=== PATIENT | male | born 1980 | race Hispanic/Latino ===

== ENCOUNTER 2022-11-18 22:46 | Inpatient (IN) | payer OTHER ==
[~2022-11-18 22:46] MED LIST: Iopamidol-370 76% 500 ML 1 ML ONE
[2022-11-18] MEDS ORDERED: Fentanyl 100 MCG/2 ML VIAL ONE (23:16)
[2022-11-18 23:19] LABS: #Basophils 0.1 thou/uL (0.0-0.2); #Eosinphils 0.2 thou/uL (0.0-0.7); #Lymphocytes 3.9 thou/uL (1.20-3.40); #Monocytes 0.5 thou/uL (0.11-0.59); %Basophils 0.4 % (0.0-1.0); %Eosinophils 1.8 % (0.0-10.0); %Lymphocytes 33.4 % (21.0-51.0); %Monocytes 4.6 % (0.0-10.0); %Neutrophils 59.7 % (42.0-75.0); Hemoglobin 13.8 g/dL (14.0-18.0); Mean Corpuscular HGB CONC 33.8 g/dL (32.0-36.0); Mean Corpuscular Hemoglobin 30.5 pg (27.0-31.0); Mean Corpuscular Volume 90.1 fl (78.0-98.0); Mean Platelet Volume 8.5 fL (7.4-10.4); Platelet Count 207 10x3/uL (130-400); RBC Distribution Width 12.2 % (11.5-14.5); Red Blood Cell (RBC) Count 4.53 mill/uL (4.70-6.10); White Blood Cell (WBC) Count 11.6 10x3/uL (4.8-10.8)
[2022-11-18 23:39] LABS: ALT (SGPT) 17 U/L (8-55); AST (SGOT) 20 U/L (5-34); Albumin 4.4 g/dL (3.5-5.0); Alkaline Phosphatase 70 U/L (40-110); Anion Gap 13 mmol/L (10-20); BUN (Urea Nitrogen) 18 mg/dL (8.9-20.6); Bilirubin, Total 0.4 mg/dL (0.2-1.2); Calc. Creatinine Clearance 0 mL/min (70-130); Calcium 9.3 mg/dL (7.8-10.44); Carbon Dioxide 20 mmol/L (22-29); Chloride 111 mmol/L (98-107); Estimated GFR 73; Globulin 2.8 g/dL (2.4-3.5); Glucose 145 mg/dL (70-105); Protein, Total 7.2 g/dL (6.0-8.3); Sodium 140 mmol/L (136-145)
[2022-11-19] MEDS ORDERED: Dextrose 5% in Water 1,000 ML IV PRN (00:33)
[2022-11-19] MEDS ORDERED: Ondansetron PF 4 MG/2 ML Vial IVP PRN (00:33)
[2022-11-19] MEDS ORDERED: TETANUS, DIPHTHERIA TOX,ADULT (TDVAX) 0.5 ML VIAL IM ONE (00:33)
[2022-11-19] MEDS ORDERED: hydrALAZINE 20 MG/ML VIAL SLOW IVP PRN (00:33)
[2022-11-19] MEDS ORDERED: Dextrose 50% Abboject 50 ML SYRINGE SLOW IVP PRN (00:33)
[2022-11-19] MEDS ORDERED: Cyclobenzaprine 10 MG TAB PO PRN (00:37)
[2022-11-19 00:42] LABS: PTT 25.9 sec (22.9-36.1)
[2022-11-19] MEDS ORDERED: Sodium Chloride 0.9% 1,000 ML IV SCH (00:45)
[2022-11-19 00:49] LABS: Magnesium 1.8 mg/dL (1.6-2.6); Phosphorus 2.5 mg/dL (2.3-4.7)
[2022-11-19] MEDS ORDERED: Magnesium 2 GM/50 ML(in water) 2 GM in Premix Bag 1 BAG IVPB SCH (01:00)
[2022-11-19 01:03] LABS: Lactic Acid 0.9 mmol/L (0.5-2.2)
[2022-11-19] MEDS: Morphine 4 MG/ML VIAL SLOW IVP PRN ×4 (01:50→21:01)
[2022-11-19] MEDS ORDERED: Sodium Phosphate 15 MMOL in Sodium Chloride 0.9% 250 ML 250 ML IVPB SCH (02:00)
[2022-11-19 02:23] VITALS: BMI 27.8
[2022-11-19 03:38] LABS: Amphetamine Not Detected (NotDetected); Barbiturates Screen Not Detected (NotDetected); Benzodiazepine Screen Not Detected (NotDetected); Cocaine Metabolite Screen Not Detected (NotDetected); Methadone Not Detected (NotDetected); Methamphetamine Not Detected (NotDetected); Opiate Screen Detected (NotDetected); Oxycodone Screen Not Detected (NotDetected); Phencyclidine (PCP) Not Detected (NotDetected); THC/Cannabinoid Screen Detected (NotDetected); Tricyclic Screen Not Detected (NotDetected)
[2022-11-19] MEDS: traMADol HCl 50 MG TAB PO SCH ×3 (06:22→20:00)
[2022-11-19] MEDS: Acetaminophen 500 MG TAB PO SCH ×3 (06:23→20:00)
[2022-11-19] MEDS ORDERED: CEFAZOLIN 2 GM in Sodium Chloride 0.9% 100 ML IVPB SCH (07:30)
[2022-11-19] MEDS: Famotidine 20 MG TAB PO SCH ×2 (09:34→21:01)
[2022-11-19] MEDS: Gabapentin 300 MG CAP PO SCH ×3 (09:35→21:00)
[2022-11-19] MEDS: Polyethylene Glycol 3350 17 GM Packet PO SCH (13:56)
[2022-11-19] MEDS: Senokot S 8.6-50 MG TAB PO SCH ×2 (13:56→21:01)
[2022-11-19] MEDS ORDERED: Fentanyl 250 MCG/5 ML VIAL ONE (16:10)
[2022-11-19] MEDS ORDERED: CEFAZOLIN 2 GM VIAL ONE (16:29)
[2022-11-19] MEDS ORDERED: Sodium Chloride 0.9% 100 ML ONE (16:29)
[2022-11-19] MEDS ORDERED: Dexamethasone 20 MG/5 ML VIAL ONE (16:45)
[2022-11-19] MEDS ORDERED: ePHEDrine 50 MG/ML VIAL ONE (16:45)
[2022-11-19] MEDS ORDERED: PROPOFOL 200 MG/20 ML VIAL ONE (16:45)
[2022-11-19] MEDS ORDERED: Ondansetron PF 4 MG/2 ML Vial ONE (16:45)
[2022-11-19] MEDS ORDERED: HYDROmorphone 2 MG/ML VIAL SLOW IVP PRN (18:26)
[2022-11-19] MEDS ORDERED: Meperidine HCl/PF 25 MG/ML VIAL SLOW IVP PRN (18:26)
[2022-11-19] MEDS ORDERED: Morphine Sulfate 2 MG/ML SYRINGE SLOW IVP PRN (18:26)
[2022-11-19] MEDS ORDERED: Ondansetron HCl/PF 4 MG/2 ML Vial IVP PRN (18:26)
[2022-11-19] MEDS ORDERED: Ketorolac Tromethamine 30 MG/ML VIAL IVP PRN (18:26)
[2022-11-19] MEDS ORDERED: Promethazine HCl 25 MG/ML VIAL IM PRN (18:26)
[2022-11-19] MEDS ORDERED: fentaNYL PF 100 MCG/2 ML SYRINGE ONE (18:33)
[2022-11-19] MEDS: Aspirin 81 mg Enteric Coated Tablet PO SCH (21:00)
[2022-11-20] MEDS: Acetaminophen 500 MG TAB PO SCH ×3 (00:17→12:23)
[2022-11-20] MEDS: traMADol HCl 50 MG TAB PO SCH ×3 (00:18→12:23)
[2022-11-20] MEDS: CEFAZOLIN 2 GM in Sodium Chloride 0.9% 100 ML IVPB SCH ×2 (00:19→08:20)
[2022-11-20 05:39] LABS: #Lymphocytes 1.3 thou/uL (1.20-3.40); #Monocytes 0.7 thou/uL (0.11-0.59); #Neutrophils 6.5 thou/uL (1.40-6.50); %Basophils 0.2 % (0.0-1.0); %Eosinophils 0.2 % (0.0-10.0); %Lymphocytes 15.1 % (21.0-51.0); %Neutrophils 76.4 % (42.0-75.0); Hemoglobin 11.6 g/dL (14.0-18.0); Mean Corpuscular HGB CONC 33.5 g/dL (32.0-36.0); Mean Corpuscular Hemoglobin 30.5 pg (27.0-31.0); Mean Platelet Volume 8.8 fL (7.4-10.4); Platelet Count 165 10x3/uL (130-400); RBC Distribution Width 12.1 % (11.5-14.5); Red Blood Cell (RBC) Count 3.79 mill/uL (4.70-6.10); White Blood Cell (WBC) Count 8.5 10x3/uL (4.8-10.8)
[2022-11-20 06:10] LABS: Anion Gap 12 mmol/L (10-20); BUN (Urea Nitrogen) 9 mg/dL (8.9-20.6); Calc. Creatinine Clearance 154 mL/min (70-130); Calcium 8.6 mg/dL (7.8-10.44); Carbon Dioxide 21 mmol/L (22-29); Chloride 109 mmol/L (98-107); Estimated GFR 114; Glucose 115 mg/dL (70-105); Magnesium 1.9 mg/dL (1.6-2.6); Phosphorus 3.8 mg/dL (2.3-4.7); Potassium 4.5 mmol/L (3.5-5.1); Sodium 137 mmol/L (136-145)
[2022-11-20] MEDS: Gabapentin 300 MG CAP PO SCH (08:19)
[2022-11-20] MEDS: Aspirin 81 mg Enteric Coated Tablet PO SCH (08:20)
[2022-11-20] MEDS: Famotidine 20 MG TAB PO SCH (08:20)
[2022-11-20] MEDS: Senokot S 8.6-50 MG TAB PO SCH (08:35)
[2022-11-20] MEDS: Polyethylene Glycol 3350 17 GM Packet PO SCH (08:35)
[2022-11-20 13:08] VITALS: BP 149/85; TEMP 98.3
== END 2022-11-20 15:23 | disposition home or self-care (01) | DRG 482 ==
LOC: ERS 22:46 → SJJU 11-19 00:33
PROVIDERS: ADMIT Specialist; ATTEND Surgery
PROC: 0QS806Z Reposition Right Femoral Shaft with Intramedullary Internal Fixation Device, Open Approach (ICD-10-PCS; principal; 2022-11-19)
DX: S72.351A Displaced comminuted fracture of shaft of right femur, initial encounter for closed fracture (principal); Z20.822 Contact with and (suspected) exposure to COVID-19; F17.210 Nicotine dependence, cigarettes, uncomplicated; K64.9 Unspecified hemorrhoids; V43.62XA Car passenger injured in collision with other type car in traffic accident, initial encounter; Y92.410 Unspecified street and highway as the place of occurrence of the external cause
CPT/HCPCS: 36415; 70450; 71045; 72125; 74177; 80048; 80053; 80306; 80307; 82550; 83605; 83735; 84100; 85025; 85610; 85730; 86850; 86900; 86901; 93005; 96374; C1713; G0390; J1100; J1650; J2270; J2405; J2704; J3010; J3475; J3490; J7050; Q9967; U0003; U0005